=== PATIENT | male | born 1960 | race Caucasian/White ===

== ENCOUNTER 2017-07-26 09:50 | Day surgery (SDC) | payer MEDICAID, OTHER ==
[~2017-07-26 09:50] MED LIST: RINGER'S SOLUTION,LACTATED 1,000 ML IV PRN
[2017-07-26] MEDS ORDERED: RINGER'S SOLUTION,LACTATED 1,000 ML IV ONE (10:30)
[2017-07-26] MEDS ORDERED: RINGER'S SOLUTION,LACTATED 1,000 ML IV PRN (12:16)
[2017-07-26 13:27] VITALS: BP 148/82
--- NOTE | 2017-07-26 19:38 | OR ---
Operative Report - Dictated Report Narrative: OPERATIVE REPORT DATE OF OPERATION: 07/26/2017 PREOPERATIVE DIAGNOSIS: No prior dedicated colon studies. Change in bowel habit POSTOPERATIVE DIAGNOSIS: 1 cm pedunculated polyp at 30 cm. Additional 4 mm adenomatous appearing polyps at 80 cm, 75 cm, and in the rectum pathology pending). OPERATION: Colonoscopy with snare polypectomy at 30 cm and hot biopsy forceps polypectomies at 80 cm, 75 cm, and in the rectum. SURGEON: Cecilia Castillo MD ANESTHESIA: JOHN Vivas CRNA INDICATIONS FOR PROCEDURE: The patient is a 57-year-old male referred by Dr. Mcmullen. The patient has had no previous dedicated colon studies. There is no family history of colon cancer. He has had a recent change in bowel habit with alternating hard and loose stools. He has had no abdominal pain or bleeding. FINDINGS: 1 cm pedunculated polyp at 30 cm. 4 mm polyps at 80 cm, 75 cm, and in the rectum. Otherwise normal colonoscopy to the cecum NARRATIVE OF PROCEDURE: The patient was identified in the holding area, and prior to the administration of anesthetic, a multidisciplinary timeout was observed. With the patient in the left lateral position and after the administration of intravenous sedation, the perineum was inspected. There was no evidence of pilonidal disease or skin breakdown. The external appearance of the anus was normal. Sphincter tone was good. The flexible fiberoptic colonoscope was inserted into the rectum which was insufflated with air. The rectal mucosa and submucosal vascular pattern appeared normal, the prep was seen to be complete. There was a 4 mm rectal polyp. This was bypassed. The scope was advanced through the sigmoid colon, up the descending colon, and around the splenic flexure where the triangular haustral architecture of the transverse colon was seen. The scope was advanced across the transverse colon, around the hepatic flexure to the cecum, where the confluence of tenia and the ileocecal valve were identified. The mucosa at this level appeared normal. The scope was then slowly withdrawn in a circular fashion so that all aspects of colonic mucosa were inspected. The colon was somewhat capacious and character but normal in course. The haustral architecture appeared well preserved throughout with no evidence of external compression. The mucosa and submucosal vascular pattern appeared normal, specifically there was no gross evidence to suggest colitis or inflammatory bowel disease and no AV malformations were seen. No nikki diverticular openings were demonstrated. 4 mm Polyps were encountered at 80 cm, and at 75 cm. These were biopsied and then thoroughly destroyed with electrocautery. The biopsy sites were seen to be completely hemostatic. A large pedunculated polyp was encountered at 30 cm. This was encircled with a cautery snare amputated and retrieved for pathology. The stump appeared hemostatic and complete. The scope was gradually withdrawn to the level of the rectum. The rectal polyp was biopsied and then thoroughly destroyed with electrocautery. The site was seen to be completel and hemostatic. As much insufflated air as possible was removed. The scope was withdrawn from the patient and the procedure terminated. The patient tolerated the anesthetic and procedure well without complication and was transferred back to the ambulatory surgery area awake and in stable condition. The patient remained stable throughout a period of postoperative observation. He denied abdominal discomfort, was able to tolerate by mouth intake, and was up without assistance. I shared the operative findings with the patient and he was given copies of the photographs which appear in the medical record. He was discharged home with instructions not to engage in hazardous activity today, but may resume normal activity tomorrow, and advance diet as tolerated. He is to continue those medications as listed in the history and physical exam. I made arrangements to contact him with the biopsy reports and will make additional recommendations for treatment and follow-up based upon those results. Reviewed and electronically signed
== END 2017-07-26 09:51 | disposition home or self-care (01) ==
LOC: AMB 09:50
PROVIDERS: ATTEND Surgery
PROC: 0D5M8ZZ Destruction of Descending Colon, Via Natural or Artificial Opening Endoscopic (ICD-10-PCS; 2017-07-26)
PROC: 0D5L8ZZ Destruction of Transverse Colon, Via Natural or Artificial Opening Endoscopic (ICD-10-PCS; 2017-07-26)
PROC: 0D5P8ZZ Destruction of Rectum, Via Natural or Artificial Opening Endoscopic (ICD-10-PCS; 2017-07-26)
PROC: 0DBN8ZX Excision of Sigmoid Colon, Via Natural or Artificial Opening Endoscopic, Diagnostic (ICD-10-PCS; principal; 2017-07-26 10:30)
DX: Z12.11 Encounter for screening for malignant neoplasm of colon (principal); D12.4 Benign neoplasm of descending colon; D12.5 Benign neoplasm of sigmoid colon; D12.8 Benign neoplasm of rectum; D12.3 Benign neoplasm of transverse colon; E11.9 Type 2 diabetes mellitus without complications; I10 Essential (primary) hypertension; K21.9 Gastro-esophageal reflux disease without esophagitis; M19.90 Unspecified osteoarthritis, unspecified site; F41.9 Anxiety disorder, unspecified; F32.9 Major depressive disorder, single episode, unspecified; Z87.891 Personal history of nicotine dependence; Z68.38 Body mass index [BMI] 38.0-38.9, adult